=== PATIENT | female | born 1955 | race Caucasian/White ===

== ENCOUNTER → 2021-03-25 | Outpatient (CLI) | payer MEDICARE, OTHER | END | disposition home or self-care (01) | LOC: CFH 10:45 | PROVIDERS: ATTEND Neurological Surgery | DX: M50.33 Other cervical disc degeneration, cervicothoracic region (principal); M47.813 Spondylosis without myelopathy or radiculopathy, cervicothoracic region; M25.78 Osteophyte, vertebrae; M48.02 Spinal stenosis, cervical region | CPT/HCPCS: 72125 ==